=== PATIENT | male | born 1965 | race African-American/Black ===

== ENCOUNTER 2025-01-28 17:42 | Inpatient (IN) | payer MEDICAID ==
[~2025-01-28] VITALS: Ht 182.9 cm; Wt 72.6 kg
[2025-01-28 18:50] LABS: GLUCOMETER DEV NAME(LOC) POC.BV; POC SARS-COV2 AG, FIA NEGATIVE (NEGATIVE)
[2025-01-28] MEDS: ZOLPIDEM TARTRATE 10 MG TABLET PO PRN (20:35)
[2025-01-28 21:08] VITALS: BP 163/69; PULSE 81; RESP 16; TEMP 97.5; O2SAT 100
[2025-01-29 02:28] VITALS: BP 152/77; PULSE 72; RESP 18; O2SAT 97
[2025-01-29 08:02] VITALS: BP 140/89; PULSE 72; RESP 18; TEMP 98.1; O2SAT 95
[2025-01-29 08:22] LABS: PLATELET COUNT (AUTO) 332 K/uL (150-450); RED BLOOD CELL COUNT(AUTO) 4.12 MIL/uL (4.50-5.90); RED CELL DISTRIBUTION WIDTH 13.5 % (11.5-14.5); WHITE BLOOD COUNT (AUTO) 6.9 K/uL (4.5-11.0)
[2025-01-29 08:51] LABS: ASPARTATE AMINOTRANSFERASE 27 U/L (15-37); CALCIUM, TOTAL 9.5 mg/dL (8.8-10.5); CHOL/HDL RATIO 2.1 (4.2-7.3); CREATININE 0.77 mg/dL (0.60-1.30); GLOMERULAR FILTR. RATE CALC > 60 mL/min (>60); GLUCOSE,RANDOM 85 mg/dL (70-110); SODIUM SERUM 141 mmol/L (136-145); TOTAL PROTEIN, SERUM 7.4 g/dL (6.4-8.2); UREA NITROGEN, BLOOD 21 mg/dL (7-18)
[2025-01-29 09:16] LABS: LDL CHOL (CALC.) 74 mg/dL (0-130)
[2025-01-29] MEDS: SODIUM POLYSTYRENE SULFONATE 15 GM/60 ML SUSPENSION BOTTLE PO ONE (11:35)
[2025-01-29] MEDS: DIVALPROEX SODIUM 500 MG DR TABLET PO SCH (18:12)
[2025-01-29 20:08] VITALS: BP 130/71; PULSE 88; RESP 18; O2SAT 100
[2025-01-30 09:23] VITALS: BP 122/76; PULSE 80; RESP 18; TEMP 98; O2SAT 99
[2025-01-30 20:39] VITALS: BP 132/61; PULSE 83; RESP 18; TEMP 97.6; O2SAT 98
[2025-01-31 08:01] VITALS: BP 124/84; RESP 17; TEMP 97.7; O2SAT 99
[2025-01-31] MEDS ORDERED: GuaiFENesin/D-METHORPHAN [SUGAR-FREE] 200-20MG/10 ML SYRUP UDCUP PO PRN (11:00)
[2025-01-31] MEDS ORDERED: DOCUSATE SODIUM 100 MG CAPSULE PO PRN (11:00)
[2025-01-31] MEDS ORDERED: ONDANSETRON 4 MG TABLET PO PRN (11:00)
[2025-01-31] MEDS ORDERED: PETROLATUM,WHITE 28 GM JELLY TP PRN (11:00)
[2025-01-31] MEDS ORDERED: ALBUTEROL SULFATE HFA 90 MCG/PUFF 8 GM INHALER IH PRN (11:00)
[2025-01-31] MEDS ORDERED: MAGNESIUM HYDROXIDE SUSPENSION 30 ML UDCUP PO PRN (11:00)
[2025-01-31] MEDS ORDERED: LOPERAMIDE HCL 2 MG CAPSULE PO PRN (11:00)
[2025-01-31] MEDS ORDERED: MAG HYDROX/ALUMINUM HYD/SIMETH ES 30 ML SUSPENSION UDCUP PO PRN (11:00)
[2025-01-31 20:09] VITALS: BP 143/78; PULSE 83; RESP 16; TEMP 97.6; O2SAT 100
[2025-02-01 08:09] VITALS: BP 164/90; PULSE 86; RESP 18; TEMP 98; O2SAT 100
[2025-02-01] MEDS: IBUPROFEN 400 MG TABLET PO PRN (08:09)
[2025-02-01] MEDS: NICOTINE 14 MG/24 HOUR PATCH TD PRN (12:56)
[2025-02-01 20:12] VITALS: BP 135/82; PULSE 81; RESP 18; TEMP 97.6; O2SAT 99
[2025-02-01 23:45] VITALS: BP 139/85; PULSE 85; RESP 18; TEMP 97.7; O2SAT 97
[2025-02-02 08:11] VITALS: BP 160/77; PULSE 77; RESP 18; TEMP 97.5; O2SAT 100
[2025-02-02 09:26] LABS: VALPROIC ACID 53 mcg/mL (50-100)
[2025-02-02 09:39] LABS: PLATELET COUNT (AUTO) 345 K/uL (150-450); RED BLOOD CELL COUNT(AUTO) 3.93 MIL/uL (4.50-5.90); RED CELL DISTRIBUTION WIDTH 13.3 % (11.5-14.5); WHITE BLOOD COUNT (AUTO) 5.9 K/uL (4.5-11.0)
[2025-02-02 09:58] LABS: ASPARTATE AMINOTRANSFERASE 16 U/L (15-37); CALCIUM, TOTAL 8.8 mg/dL (8.8-10.5); CHOL/HDL RATIO 2.6 (4.2-7.3); CREATININE 0.82 mg/dL (0.60-1.30); GLOMERULAR FILTR. RATE CALC > 60 mL/min (>60); GLUCOSE,RANDOM 212 mg/dL (70-110); LDL CHOL (CALC.) 87 mg/dL (0-130); SODIUM SERUM 140 mmol/L (136-145); TOTAL PROTEIN, SERUM 6.7 g/dL (6.4-8.2); UREA NITROGEN, BLOOD 11 mg/dL (7-18)
[2025-02-02 21:58] VITALS: BP 178/77; PULSE 94; RESP 16; TEMP 97.9; O2SAT 100
[2025-02-03 09:01] VITALS: BP 158/84; PULSE 83; RESP 20; TEMP 97.5; O2SAT 100
[2025-02-03 20:02] VITALS: RESP 18
[2025-02-04 10:08] VITALS: BP 125/79; PULSE 88; RESP 16; TEMP 98.3; O2SAT 98
[2025-02-04] MEDS: INFLUENZA VIRUS VACCINE TVS (6MO+) 2025-26/PF 45 MCG/0.5 ML SYRINGE IM. ONE (17:08)
[2025-02-04] MEDS: PNEUMOCOCCAL VACCINE POLYVALENT 0.5 ML SYRINGE [PPSV23] IM. ONE (17:08)
[2025-02-04 21:00] VITALS: BP 165/71; PULSE 92; RESP 18; TEMP 97.6; O2SAT 100
[2025-02-05 09:33] LABS: APPEARANCE,URINE CLEAR (CLEAR); GLUCOSE, URINE (UA) 300-500 mg/dL (NEGATIVE); LEUKOCYTE ESTERASE ,URINE NEGATIVE (NEGATIVE); NITRATE,URINE NEGATIVE (NEGATIVE); OCCULT BLOOD,URINE NEGATIVE (NEGATIVE); PH,URINE DRUG SCREEN 6.0 (5.0-8.0); SPECIFIC GRAVITIY, URINE 1.016 (1.003-1.030)
[2025-02-05 09:37] LABS: ALCOHOL, URINE DRUG SCREEN NEGATIVE (NEGATIVE); AMPHET/METH SCREEN,URINE NEGATIVE (NEGATIVE); BARBITURATE SCREEN, URINE NEGATIVE (NEGATIVE); CANNABINOID SCREEN,URINE NEGATIVE (NEGATIVE); COCAINE SCREEN,URINE NEGATIVE (NEGATIVE); METHADONE SCREEN, URINE NEGATIVE (NEGATIVE)
[2025-02-05 10:17] VITALS: BP 133/70; PULSE 93; RESP 16; TEMP 97.1; O2SAT 100
[2025-02-05 10:17] LABS: CALCIUM OXALATE CRYSTALS,UR Many /LPF (None Seen); SQUAMOUS EPITHELIAL CELL,UR Few /LPF (None Seen)
[2025-02-05] MEDS: ACETAMINOPHEN 325 MG TABLET PO PRN (22:58)
[2025-02-05 23:02] VITALS: RESP 17
[2025-02-05 23:58] VITALS: RESP 17
[2025-02-06 14:59] VITALS: BP 136/78; PULSE 92; RESP 15; TEMP 97.4; O2SAT 100
[2025-02-06 20:32] VITALS: BP 154/70; PULSE 94; RESP 16; TEMP 97.6; O2SAT 100
[2025-02-07 08:17] VITALS: BP 137/75; PULSE 83; RESP 16; TEMP 97.5; O2SAT 99
[2025-02-07 20:24] VITALS: RESP 18
[2025-02-08 08:24] VITALS: BP 135/90; PULSE 96; RESP 17; TEMP 97.1; O2SAT 98
[2025-02-08 20:19] VITALS: RESP 18
[2025-02-09 08:18] VITALS: BP 158/76; PULSE 77; RESP 17; TEMP 97.5; O2SAT 100
[2025-02-09 20:17] VITALS: RESP 16
[2025-02-09 21:16] VITALS: BP 131/67; PULSE 79; RESP 16; O2SAT 100
[2025-02-09 23:40] VITALS: BP 135/79; PULSE 81; RESP 17; TEMP 97.4; O2SAT 100
[2025-02-10 08:42] VITALS: BP 143/73; PULSE 72; RESP 16; TEMP 96; O2SAT 100
[2025-02-10 20:15] VITALS: RESP 16
[2025-02-11 08:23] VITALS: BP 165/74; PULSE 95; RESP 18; TEMP 97.2; O2SAT 99
[2025-02-11 20:00] VITALS: BP 147/66; PULSE 84; RESP 16; TEMP 97.6; O2SAT 100
[2025-02-12 08:23] VITALS: BP 160/77; PULSE 90; RESP 18; TEMP 97; O2SAT 100
[2025-02-12 20:16] VITALS: BP 136/79; PULSE 94; RESP 18; TEMP 98.2; O2SAT 99
[2025-02-13 09:34] VITALS: BP 118/80; PULSE 78; RESP 17; TEMP 97.3; O2SAT 100
[2025-02-13 20:15] VITALS: BP 147/80; PULSE 78; RESP 18; TEMP 97.4; O2SAT 100
[2025-02-14 12:32] VITALS: BP 144/77; PULSE 90; RESP 15; TEMP 97.5; O2SAT 99
[2025-02-14 20:45] VITALS: BP 140/80; PULSE 75; RESP 16; TEMP 97.7; O2SAT 99
[2025-02-15 08:52] VITALS: BP 154/75; PULSE 76; RESP 18; TEMP 97.7; O2SAT 99
[2025-02-15 20:22] VITALS: BP 142/93; PULSE 94; RESP 18; TEMP 97.3; O2SAT 100
[2025-02-16 08:21] VITALS: BP 150/77; PULSE 80; RESP 18; TEMP 97.3; O2SAT 100
[2025-02-16 20:33] VITALS: BP 156/77; PULSE 90; RESP 18; TEMP 97.1; O2SAT 100
[2025-02-17 08:21] VITALS: BP 151/77; PULSE 71; RESP 17; TEMP 97.3; O2SAT 98
[2025-02-17 20:30] VITALS: BP 149/76; PULSE 90; RESP 16; TEMP 97.5; O2SAT 100
[2025-02-18 08:00] VITALS: BP 170/82; PULSE 88; RESP 16; TEMP 97.2; O2SAT 100
[2025-02-18 10:00] VITALS: BP 134/88; PULSE 86; RESP 16; O2SAT 100
[2025-02-18 20:23] VITALS: BP 134/84; PULSE 71; RESP 16; TEMP 97.3; O2SAT 99
[2025-02-19 09:35] VITALS: BP 146/76; PULSE 86; RESP 16; TEMP 97.4; O2SAT 99
[2025-02-19 16:30] VITALS: BP 153/82; PULSE 96; RESP 18; O2SAT 99
[2025-02-19 20:54] VITALS: BP 145/78; PULSE 69; RESP 18; TEMP 97.3; O2SAT 100
[2025-02-20 08:48] VITALS: BP 172/70; PULSE 88; RESP 20; TEMP 97.7; O2SAT 100
[2025-02-20] MEDS ORDERED: RISP3TAB77 PO (11:47)
[2025-02-20] MEDS ORDERED: AMLO-257 PO (11:47)
[2025-02-20] MEDS ORDERED: DIVA-112 PO (11:47)
== END 2025-02-20 16:59 | disposition home or self-care (01) | DRG 750 ==
LOC: B3A 18:13
PROVIDERS: ADMIT Psychiatry & Neurology Child & Adolescent Psychiatry; ATTEND Psychiatry & Neurology Child & Adolescent Psychiatry
PROC: GZ56ZZZ Individual Psychotherapy, Supportive (ICD-10-PCS; principal; 2025-01-29)
PROC: GZ58ZZZ Individual Psychotherapy, Cognitive-Behavioral (ICD-10-PCS; 2025-01-29)
PROC: GZHZZZZ Group Psychotherapy (ICD-10-PCS; 2025-01-29)
DX: F20.0 Paranoid schizophrenia (principal); D64.9 Anemia, unspecified; I10 Essential (primary) hypertension; F10.10 Alcohol abuse, uncomplicated; E87.6 Hypokalemia; Z20.822 Contact with and (suspected) exposure to COVID-19; R73.9 Hyperglycemia, unspecified; Y90.9 Presence of alcohol in blood, level not specified
CPT/HCPCS: 80053; 80061; 80164; 80307; 81001; 82271; 83036; 84132; 84436; 84439; 84443; 85025; 86592